=== PATIENT | male | born 2000 | race Hispanic/Latino ===

== ENCOUNTER 2024-04-02 07:42 | Emergency (ER) | payer SELFPAY ==
[2024-04-02 07:44] VITALS: BP 126/87
--- NOTE | 2024-04-02 08:39 | ED.GENMED ---
History of Present Illness
<Karina Espino MD, Resident - Last Filed: 04/03/24 06:20>
General
Chief Complaint: Eye Problems
Time Seen by Provider: 04/02/24 07:47
History of Present Illness
History of Present Illness:
24 y/o male with no significant pmhx presenting to the ED with left eye pain and redness. Pt states his symptoms started 8 days ago while working and thinks a foreign body (small piece of wood) got in his eye. Pt was seen by a physician and received
eye drops without improvement. Pt notes blurry vision and a sand like sensation, and photophobia. Denies pain with eye movement. Does not use contacts or glasses. Denies allergy to any medications.
Past History
<Karina Espino MD, Resident - Last Filed: 04/03/24 06:20>
Past History
ED Past Medical History: None
ED Past Surgical History: None
Review of Systems
<Karina Espino MD, Resident - Last Filed: 04/03/24 06:20>
Review of Systems
Constitutional: Reports no symptoms
EENT: Reports other (eye pain, tearful, redness, blurry vision)
Respiratory: Reports no symptoms
Cardiac: Reports no symptoms
ABD/GI: Reports no symptoms
: Reports no symptoms
Musculoskeletal: Reports no symptoms
Skin: Reports no symptoms
Neurological: Reports no symptoms
Endocrine: Reports no symptoms
Hematologic/Lymphatic: Reports no symptoms
Psychiatric: Reports no symptoms
Phy Exam
<Karina Espino MD, Resident - Last Filed: 04/03/24 06:20>
Physical Exam
Physical Exam:
GENERAL: Alert , in no apparent distress
LEFT EYE: left pupil reactive not reactive to light, diffuse conjunctivitis, IOP: 13 mmHg, visual acuity: diminished (hand motion, no finger count), no hypopyon, no hyphema. No foreign object was seen. No corneal abrasion.
NECK: Supple, no significant adenopathy.
ENT: o/p clr, mmm.
CARDIAC: Regular rate and rhythm .
LUNGS: Clear breath sounds bilaterally, no acute respiratory distress, no wheezes/rales/rhonchi
ABDOMEN: Soft, without focal tenderness, no r/g, no cvat
NEUROLOGICAL: Alert and oriented, no focal neuro deficits
SKIN: Warm and dry, skin intact.
MUSCULOSKELETAL: No edema, well perfused.
PSYCH: Normal and appropriate interaction.
Course
<Karina Espino MD, Resident - Last Filed: 04/03/24 06:20>
Orders/Labs/Results
Orders:
Orders
04/02/24 09:09
Fluorescein Sodium [Ful-Sherry] 1 mg .ROUTE .STK-MED ONE
Tetracaine HCl [Tetracaine 0.5% Ophthalmic Solution] 1 drop .ROUTE .STK-MED ONE
Vital Signs
Initial and Last Documented VS:
Initial Vital Signs
Temp Pulse Resp BP Pulse Ox
98.3 F 96 16 126/87 98
04/02/24 07:44 04/02/24 07:44 04/02/24 07:44 04/02/24 07:44 04/02/24 07:44
Last Documented Vital Signs
Temp Pulse Resp BP Pulse Ox
98.3 F 96 16 126/87 98
04/02/24 07:44 04/02/24 07:44 04/02/24 08:06 04/02/24 07:44 04/02/24 07:44
<Duc James MD - Last Filed: 04/02/24 08:55>
Orders/Labs/Results
Orders:
Orders
04/02/24 09:09
Fluorescein Sodium [Ful-Sherry] 1 mg .ROUTE .STK-MED ONE
Tetracaine HCl [Tetracaine 0.5% Ophthalmic Solution] 1 drop .ROUTE .STK-MED ONE
Vital Signs
Initial and Last Documented VS:
Initial Vital Signs
Temp Pulse Resp BP Pulse Ox
98.3 F 96 16 126/87 98
04/02/24 07:44 04/02/24 07:44 04/02/24 07:44 04/02/24 07:44 04/02/24 07:44
Last Documented Vital Signs
Temp Pulse Resp BP Pulse Ox
98.3 F 96 16 126/87 98
04/02/24 07:44 04/02/24 07:44 04/02/24 08:06 04/02/24 07:44 04/02/24 07:44
<Kairna Espino MD, Resident - Last Filed: 04/03/24 06:20>
MDM/Problems Addressed
Differential Diagnosis Includes:
Conjunctivitis
Iritis
Intraorbital foreign body
<Karina Espino MD, Resident - Last Filed: 04/03/24 06:20>
*Critical Care Note
Total Time (30-74mins, 75-104mins- exclusive of procedures): Not Applicable
ED Attending Note
<Kairna Espino MD, Resident - Last Filed: 04/03/24 06:20>
-
Portions of this chart may have been created with voice recognition software.� Occasional wrong word or��sound alike� substitutions may have occurred due to the inherent limitations of voice recognition software.
<Duc James MD - Last Filed: 04/02/24 08:55>
ED Attending Note
Patient seen and examined by attending physician: Yes
I performed a history and physical exam of patient and discussed management with resident, I reviewed resident's note and agree with documented findings and plan of care.: Yes
ED Attending Note:
Possible foreign body about 8 days ago. Had been on antibiotic drops. Continue eye pain and visual issues.
On exam patient has mild proptosis. He has no consensual pain with light. He has no pain with eye motion however. Diffuse conjunctival injection. Clear tearing. Minimal eyelid swelling. Eyelid everted and negative. Slit-lamp exam shows
conjunctival injection with some diffuse conjunctival uptake. Limbal uptake diffusely. No corneal uptake. No obvious foreign body. No obvious open laceration or wound. Haziness to the cornea. Difficult to tell flare and cell but likely has
some. Eye pressures 14 in the left eye. 13 in the right eye. Checked multiple times.
Cannot count fingers to the left eye. Discussed with ophthalmology who will see immediately in the office. Patient was updated with the historical interpreter and is understanding he must get to the office immediately with which he states he can do.
Discharge Plan
Departure
Patient Disposition: Home (Routine Discharge)
Date of Disposition: 04/02/24
Time of Disposition: 08:50
Patient with high blood pressure during this ER visit?: No
Discharge Problem:
Inflammation left eye, Visual loss left eye
Referrals:
Rosemary Kang MD [Active] -
Activity Restrictions/Additional Instructions:
Go directly to the ophthalmology office listed this morning. They are expecting you
Interventions
Interventions:
*Risk Screen - Suicide Last Done: 04/02/24 07:44
*General Assessment Last Done: 04/02/24 08:05
*Neglect/Abuse Screening Last Done: 04/02/24 07:44
ED- Fall Risk Assessment Last Done: 04/02/24 08:05
*ED COVID-19 Vaccine History Last Done: 04/02/24 08:05
*Nursing Disposition Last Done: 04/02/24 09:12
Discharge Date and Time
Discharge Date/Time: 04/02/24 09:13
Print Language: ETHIOPIAN
== END 2024-04-02 09:13 | disposition home or self-care (01) ==
LOC: EMR 07:42
PROVIDERS: EMERGENCY PHYSICIAN Emergency Medicine
DX: H57.89 Other specified disorders of eye and adnexa (principal); H54.62 Unqualified visual loss, left eye, normal vision right eye
CPT/HCPCS: 99283